=== PATIENT | male | born 1970 | race Two or more races ===

== ENCOUNTER 2023-09-24 19:13 | Emergency (ER) | payer OTHER ==
[2023-09-24 19:29] VITALS: BP 113/80; PULSE 102; RESP 16; TEMP 98.9; BMI 27.4
[2023-09-24] MEDS ORDERED: ACETAMINOPHEN INJECTION 100 ML IVPB ONE (20:22)
[2023-09-24] MEDS ORDERED: ONDANSETRON 4 MG/2 ML VIAL ONE (20:22)
[2023-09-24 20:26] LABS: BASO % 0.5 % (0-2.0); EOS % 0.3 % (0-4.5); HEMATOCRIT 41.9 % (35.4-49); HEMOGLOBIN 14.4 GM/dL (11.7-16.9); LYMPH % 12.4 % (8-40); MCHC 34.3 g/dl (32.0-35.9); MEAN CELL VOLUME 81.5 fl (80-96); MEAN PLT VOLUME 10.3 fl (7.5-11.1); MONO % 6.4 % (3.8-10.2); NEUT % 80.4 % (42.8-82.8); PLATELET COUNT 209 10^3/uL (134-434); RBC 5.14 M/mm3 (4.00-5.60); RDW 13.4 % (11.9-15.9); WHITE BLOOD COUNT 9.8 K/mm3 (4.0-10.0)
[2023-09-24] MEDS: LACTATED RINGERS SOLUTION 1000 ML INFUS.BAG IV ONE (20:28)
[2023-09-24] MEDS: ACETAMINOPHEN 1000 MG/100 ML BAG IVPB ONE (20:28)
[2023-09-24] MEDS: ONDANSETRON 4 MG/2 ML VIAL IVPUSH ONE (20:29)
[2023-09-24] MEDS ORDERED: FAMOTIDINE 20 MG/50 ML IVPB 20 MG/50 ML MG IVPB ONE (20:50)
[2023-09-24] MEDS: FAMOTIDINE 20 MG/50 ML IVPB 20 MG/50 ML MG IVPB ONE (20:53)
[2023-09-24 21:17] LABS: POTASSIUM 3.8 mmol/L (3.5-5.1)
[2023-09-24 21:21] LABS: BLOOD UREA NITROGEN 21.4 mg/dL (7-18); CALCIUM 9.3 mg/dL (8.5-10.1); MAGNESIUM 1.9 mg/dL (1.8-2.4)
[2023-09-24 21:23] LABS: CREATININE 0.7 mg/dL (0.55-1.3)
[2023-09-24 21:26] LABS: BILIRUBIN,TOTAL 0.4 mg/dL (0.2-1); TOT PROT 8.1 g/dl (6.4-8.2)
== END 2023-09-24 21:56 | disposition home or self-care (01) ==
LOC: JER 19:13
PROC: 3E033GC Introduction of Other Therapeutic Substance into Peripheral Vein, Percutaneous Approach (ICD-10-PCS; principal; 2023-09-24)
PROC: 3E033NZ Introduction of Analgesics, Hypnotics, Sedatives into Peripheral Vein, Percutaneous Approach (ICD-10-PCS; 2023-09-24)
PROC: 3E033GC Introduction of Other Therapeutic Substance into Peripheral Vein, Percutaneous Approach (ICD-10-PCS; 2023-09-24)
DX: R11.2 Nausea with vomiting, unspecified (principal); R19.7 Diarrhea, unspecified; Z20.822 Contact with and (suspected) exposure to COVID-19
CPT/HCPCS: 0241U-QW; 36415; 80053; 83690; 83735; 85025; 93005; 93010; 96365; 96375; 99284-25; J0131

== ENCOUNTER 2023-12-26 14:12 | Emergency (ER) | payer OTHER ==
[2023-12-26 14:16] VITALS: BP 128/84; PULSE 102; RESP 18; TEMP 97.3; BMI 28.2
[2023-12-26] MEDS ORDERED: LIDOCAINE 5% TOPICAL PATCH ONE (15:23)
[2023-12-26] MEDS ORDERED: IBUPROFEN 600 MG TABLET (FP) PO ONE (15:24)
[2023-12-26] MEDS: IBUPROFEN 600 MG TABLET (FP) PO ONE (15:29)
[2023-12-26] MEDS: LIDOCAINE 5% TOPICAL PATCH TP ONE (15:30)
[2023-12-26] MEDS: METHOCARBAMOL 500 MG TABLET PO ONE (15:31)
[2023-12-26 15:39] LABS: URINE APPEARANCE CLEAR; URINE BILIRUBIN NEGATIVE (NEGATIVE); URINE COLOR YELLOW; URINE GLUCOSE (UA) NEGATIVE (NEGATIVE); URINE KETONE NEGATIVE (NEGATIVE); URINE LEUK ESTERASE NEGATIVE (NEGATIVE); URINE NITRITE NEGATIVE (NEGATIVE); URINE PROTEIN NEGATIVE (NEGATIVE); URINE UROBILINOGEN 0.2 mg/dL (0.2-1.0)
[2023-12-26] MEDS ORDERED: LIDOCAINE PATCH REMOVAL MC SCH (22:00)
== END 2023-12-26 15:54 | disposition home or self-care (01) ==
LOC: JER 14:12
DX: S39.012A Strain of muscle, fascia and tendon of lower back, initial encounter (principal); X50.1XXA Overexertion from prolonged static or awkward postures, initial encounter
CPT/HCPCS: 81003; 87086; 99283-25